=== PATIENT | female | born 1935 | race Hispanic/Latino ===

== ENCOUNTER 2016-07-17 15:48 | Emergency (ER) | payer MEDICARE ==
[2016-07-17] MEDS ORDERED: TYLENOL PO ONE (17:05)
--- NOTE | 2016-07-17 17:06 | Emergency Department Report ---
ED General Adult HPI - General Chief complaint: Chest Pain Stated complaint: KAYLI Time Seen by Provider: 07/17/16 16:56 Source: patient, family, EMS (verbal report received from EMS.), RN notes reviewed Mode of arrival: Stretcher Limitations: Physical Limitation - History of Present Illness Initial comments: This is a 80-year-old female. She is previously unknown to me. The patient was recently admitted to [facility] for a cardiac bypass on July 06; her cardiac surgeon was Dr. Gee. As per family, the patient was in the hospital from July 06 throughout July 15. The patient is brought to the hospital by EMS for respiratory distress. As per EMS documentation, patient is complaining of shortness of breath. The patient was given Lasix and Rocephin prior to EMSs arrival. EMS reports that the patient's oxygen saturation was 81% in the field. Patient found to be febrile. Upon arrival to the ER, patient continued to complain of shortness of breath, fever and weakness. She has a chronic pain over her sternotomy site, which is not new, worsening or different. As per EMS documentation, patient was febrile in the field to 100.2, found to be hypoxic, and given albuterol. Patient in the ER was transitioned to a Ventimask, laboratory studies were obtained, blood cultures were obtained, a chest x-ray demonstrated right lower lobe pneumonia, and the patient was transitioned to BiPAP therapy. This hospital facility does not have cardiac surgery ICU or cardiac surgery consultation available. Given her recent surgical intervention, and her obvious clinical decompensation, I believe it is prudent and in the patient's best interest to be transferred back to the hospital where she had her surgery performed. Therefore, the case was discussed with Dr. Garcia, the cardiac surgeon covering for the patient's private cardiac surgeon, who graciously accepted the patient as a transfer. -: Gradual Consistency: constant Improves with: rest Worsens with: movement Associated Symptoms: cough, fever/chills, loss of appetite, malaise, shortness of breath, weakness - Related Data Home Medications Medication Instructions Recorded Confirmed Last Taken Aspirin [Aspirin BABY CHEW TAB] 81 mg PO QDAY 07/17/16 07/17/16 Unknown AtorvaSTATin [Lipitor] 40 mg PO QHS 07/17/16 07/17/16 Unknown Digoxin [Lanoxin] 0.125 mg PO DAILY 07/17/16 07/17/16 Unknown Estradiol 2 mg PO DAILY 07/17/16 07/17/16 Unknown Furosemide [Lasix TAB] 40 mg PO QDAY 07/17/16 07/17/16 Unknown Levothyroxine [Synthroid] 25 mcg PO QAM 07/17/16 07/17/16 Unknown Linagliptin [Tradjenta] 5 mg PO QDAY 07/17/16 07/17/16 Unknown Metoprolol Tartrate 75 mg PO BID 07/17/16 07/17/16 Unknown Nitrofurantoin [place]/M-Cryst 100 mg PO Q12HR 07/17/16 07/17/16 Unknown [Macrobid CAP] Potassium Chloride [K-Dur] 20 meq PO QDAY 07/17/16 07/17/16 Unknown Warfarin [Coumadin] 2.5 mg PO QDAY 07/17/16 07/17/16 Unknown traMADol [Ultram] 50 mg PO Q8H PRN 07/17/16 07/17/16 Unknown Allergies Allergy/AdvReac Type Severity Reaction Status Date / Time azithromycin Allergy Unknown Verified 07/17/16 16:30 codeine Allergy Unknown Verified 07/17/16 16:30 adhesive tape AdvReac Unknown Verified 07/17/16 16:30 flu vaccine Allergy Swelling Uncoded 07/17/16 16:30 ED Review of Systems ROS: Stated complaint: KAYLI Other details as noted in HPI Constitutional: fever, malaise Eyes: denies: vision change ENT: denies: epistaxis Respiratory: shortness of breath Cardiovascular: dyspnea on exertion Gastrointestinal: denies: vomiting Genitourinary: as per HPI Musculoskeletal: as per HPI Skin: lesions Neurological: weakness Psychiatric: anxiety ED Past Medical Hx - Past Medical History Previous Medical History?: Yes Hx Congestive Heart Failure: Yes Hx COPD: Yes - Surgical History Past Surgical History?: Yes Hx Open Heart Surgery: Yes (10 days ago) - Social History Smoking Status: Never Smoker Substance Use Type: None - Medications Home Medications: Home Medications Medication Instructions Recorded Confirmed Last Taken Type Aspirin [Aspirin BABY CHEW TAB] 81 mg PO QDAY 07/17/16 07/17/16 Unknown History AtorvaSTATin [Lipitor] 40 mg PO QHS 07/17/16 07/17/16 Unknown History Digoxin [Lanoxin] 0.125 mg PO DAILY 07/17/16 07/17/16 Unknown History Estradiol 2 mg PO DAILY 07/17/16 07/17/16 Unknown History Furosemide [Lasix TAB] 40 mg PO QDAY 07/17/16 07/17/16 Unknown History Levothyroxine [Synthroid] 25 mcg PO QAM 07/17/16 07/17/16 Unknown History Linagliptin [Tradjenta] 5 mg PO QDAY 07/17/16 07/17/16 Unknown History Metoprolol Tartrate 75 mg PO BID 07/17/16 07/17/16 Unknown History Nitrofurantoin [place]/M-Cryst 100 mg PO Q12HR 07/17/16 07/17/16 Unknown History [Macrobid CAP] Potassium Chloride [K-Dur] 20 meq PO QDAY 07/17/16 07/17/16 Unknown History Warfarin [Coumadin] 2.5 mg PO QDAY 07/17/16 07/17/16 Unknown History traMADol [Ultram] 50 mg PO Q8H PRN 07/17/16 07/17/16 Unknown History ED Physical Exam - General Limitations: Physical Limitation General appearance: alert, in no apparent distress - Head Head exam: Present: atraumatic, normocephalic - Eye Eye exam: Present: normal appearance, EOMI. Absent: nystagmus - ENT ENT exam: Present: normal exam, normal orophraynx, mucous membranes moist, normal external ear exam - Neck Neck exam: Present: normal inspection, full ROM. Absent: tenderness, meningismus - Respiratory Respiratory exam: Present: respiratory distress, wheezes, rales, rhonchi, chest wall tenderness, other (median sternotomy scar has no obvious redness, pus, streaking or cellulitis. There is dried blood, and there appears to be minimal necrosis.) - Cardiovascular Cardiovascular Exam: Present: regular rate, normal rhythm, normal heart sounds. Absent: bradycardia, tachycardia, irregular rhythm, systolic murmur, diastolic murmur, rubs, gallop - GI/Abdominal GI/Abdominal exam: Present: soft, normal bowel sounds. Absent: distended, tenderness, guarding, rebound, rigid, pulsatile mass - Extremities Exam Extremities exam: Present: normal inspection, normal capillary refill, pedal edema, other (left lower extremity is status post saphenous vein harvest. There are appropriate postoperative ecchymosis. There is no redness, pus, streaking). Absent: calf tenderness - Back Exam Back exam: Present: normal inspection, full ROM. Absent: tenderness, CVA tenderness (R), CVA tenderness (L), muscle spasm, paraspinal tenderness, vertebral tenderness - Neurological Exam Neurological exam: Present: alert, oriented X3, other (Extraocular movements intact. Tongue midline. No facial droop. Facial sensation intact to light touch in the V1, V2, V3 distribution bilaterally. 5 and 5 strength in 4 extremities.. Sensation is intact to light touch in 4 extremities.). Absent: motor sensory deficit - Psychiatric Psychiatric exam: Present: normal affect, normal mood - Skin Skin exam: Present: warm, dry, intact, normal color. Absent: rash ED Course Vital Signs 07/17/16 07/17/16 07/17/16 16:14 16:15 16:31 Temperature 100.9 F H Pulse Rate 78 76 Respiratory 24 26 H Rate Blood Pressure 154/53 145/54 O2 Sat by Pulse 85 84 96 Oximetry 07/17/16 07/17/16 07/17/16 16:42 17:01 17:30 Temperature Pulse Rate 78 73 Respiratory 24 19 23 Rate Blood Pressure 154/53 145/54 O2 Sat by Pulse 95 96 96 Oximetry 07/17/16 07/17/16 07/17/16 17:31 18:00 18:31 Temperature Pulse Rate 74 72 68 Respiratory 18 22 24 Rate Blood Pressure 154/53 123/48 123/48 O2 Sat by Pulse 97 97 96 Oximetry 07/17/16 07/17/16 18:50 19:01 Temperature 98.6 F Pulse Rate 68 Respiratory 18 Rate Blood Pressure 123/48 O2 Sat by Pulse 97 Oximetry - Reevaluation(s) Reevaluation #1: 07/17/16 17:50 Differential diagnosis: Pneumonia, bacteremia, congestive heart failure, multifactorial respiratory failure Assessment and plan: 80-year-old female status post triple bypass with fever, leukocytosis, respiratory failure requiring initiation of BiPAP therapy. She will require transfer. This facility does not have the ability to definitively manage this patient. She'll be started on BiPAP therapy, and treated broadly with vancomycin, Zosyn and Levaquin. Patient and family were informed. Reevaluation #2: 07/17/16 17:52 Elevated troponin is appreciated. This is most likely a combination of cardiac strain, recent sternotomy, renal insufficiency, acute febrile illness. Elevated BNP is appreciated. Patient is given Lasix prior to my evaluation. ED Medical Decision Making - Lab Data Result diagrams: 07/17/16 17:01 07/17/16 17:01 Vital Signs 07/17/16 07/17/16 07/17/16 16:14 16:15 16:31 Temperature 100.9 F H Pulse Rate 78 76 Respiratory 24 26 H Rate Blood Pressure 154/53 145/54 O2 Sat by Pulse 85 84 96 Oximetry 07/17/16 07/17/16 07/17/16 16:42 17:01 17:30 Temperature Pulse Rate 78 73 Respiratory 24 19 23 Rate Blood Pressure 154/53 145/54 O2 Sat by Pulse 95 96 96 Oximetry Lab Results 07/17/16 07/17/16 07/17/16 Range/Units 17:01 17:01 17:01 WBC 26.7 H (4.5-11.0) K/mm3 RBC 3.57 L (3.65-5.03) M/mm3 Hgb 10.4 (10.1-14.3) gm/dl Hct 31.7 (30.3-42.9) % MCV 89 (79-97) fl MCH 29 (28-32) pg MCHC 33 (30-34) % RDW 14.2 (13.2-15.2) % Plt Count 390 (140-440) K/mm3 Seg Neutrophils % Enamel Shader PT 19.4 H (12.2-14.9) Sec. INR 1.64 H (0.87-1.13) APTT 31.0 (24.2-36.6) Sec. Sodium 136 L (137-145) mmol/L Potassium 4.1 (3.6-5.0) mmol/L Chloride 88.9 L (98-107) mmol/L Carbon Dioxide 30 (22-30) mmol/L Anion Gap 21 mmol/L BUN 29 H (7-17) mg/dL Creatinine 1.6 H (0.7-1.2) mg/dL Estimated GFR 31 ml/min BUN/Creatinine Ratio 18.12 % Glucose 168 H (65-100) mg/dL Calcium 9.3 (8.4-10.2) mg/dL Magnesium (1.7-2.3) mg/dL Troponin T 0.048 H (0.00-0.029) ng/mL NT-Pro-B Natriuret Pep (0-900) pg/mL 07/17/16 07/17/16 Range/Units 17:01 17:01 WBC (4.5-11.0) K/mm3 RBC (3.65-5.03) M/mm3 Hgb (10.1-14.3) gm/dl Hct (30.3-42.9) % MCV (79-97) fl MCH (28-32) pg MCHC (30-34) % RDW (13.2-15.2) % Plt Count (140-440) K/mm3 Seg Neutrophils % PT (12.2-14.9) Sec. INR (0.87-1.13) APTT (24.2-36.6) Sec. Sodium (137-145) mmol/L Potassium (3.6-5.0) mmol/L Chloride (98-107) mmol/L Carbon Dioxide (22-30) mmol/L Anion Gap mmol/L BUN (7-17) mg/dL Creatinine (0.7-1.2) mg/dL Estimated GFR ml/min BUN/Creatinine Ratio % Glucose (65-100) mg/dL Calcium (8.4-10.2) mg/dL Magnesium 1.8 (1.7-2.3) mg/dL Troponin T (0.00-0.029) ng/mL NT-Pro-B Natriuret Pep 7342 H (0-900) pg/mL - Radiology Data Radiology results: image reviewed interpreted by me: EKG demonstrates median sternotomy, right lower lobe infiltrate, pulmonary vascular congestion, possible left lower lobe infiltrate Critical Care Time: Yes Critical care time in (mins) excluding proc time.: 45 Critical care attestation.: If time is entered above; I have spent that time in minutes in the direct care of this critically ill patient, excluding procedure time. Critical Care Time: Critical care time includes multiple bedside evaluations, interpretation of laboratory studies, radiology studies, time spent managing a patient with acute febrile illness, sepsis syndrome requiring initiation of BiPAP therapy, broad- spectrum antibiotics, and consultation with cardiac surgery. ED Disposition Clinical Impression: Acute febrile illness, Respiratory distress Disposition: DC/TX SHORT-TERM GEN HOSP INPT Is pt being admited?: No Does the pt Need Aspirin: No Condition: Fair Referrals: KARI REYES MD [Primary Care Provider] - 3-5 Days
[2016-07-17] MEDS ORDERED: LEVAQUIN 750MG/150ML 750 MG/150 ML BAG IV ONE (17:16)
[2016-07-17] MEDS ORDERED: ZOSYN/NS 4.5GM/100ML 4.5 GM/100 ML VIAL IV ONE (17:16)
[2016-07-17] MEDS ORDERED: VANCOMYCIN VIAL IV ONE (17:16)
[2016-07-17 17:17] LABS: Hematocrit 31.7 % (30.3-42.9); Hemoglobin 10.4 gm/dl (10.1-14.3); Mean Corpuscular HGB Conc 33 % (30-34); Mean Corpuscular Hemoglobin 29 pg (28-32); Mean Corpuscular Volume 89 fl (79-97); Platelet Count 390 K/mm3 (140-440); Red Blood Count 3.57 M/mm3 (3.65-5.03); Red Cell Distribution Width 14.2 % (13.2-15.2)
[2016-07-17 17:26] LABS: White Blood Count 26.7 K/mm3 (4.5-11.0)
[2016-07-17 17:27] LABS: INR 1.64 (0.87-1.13)
[2016-07-17 17:40] LABS: BUN/Creatinine Ratio 18.12; Calcium 9.3 mg/dL (8.4-10.2); Chloride 88.9 mmol/L (98-107); Potassium 4.1 mmol/L (3.6-5.0)
--- NOTE | 2016-07-17 17:57 | XRay Report ---
FINAL REPORT EXAM: XR CHEST 1V AP HISTORY: Shortness of breath TECHNIQUE: One view examination of the chest PRIORS: None FINDINGS: Sternotomy cerclage wires are present. An electronic cardiac device obscures a portion of the left chest, limiting the examination. Cable entry is via the left subclavian vein. The visualized left lung is clear. No pneumothorax or pleural effusion. Normal cardiac silhouette size without definite vascular congestion. No acute skeletal pathology. Degenerative changes in the regional skeleton. Nonspecific hazy confluent opacity is noted in the right lung base which may be layering pleural fluid, atelectasis, or pneumonia. IMPRESSION: Nonspecific hazy confluent opacity in the right lung base may be layering pleural fluid, atelectasis, or pneumonia
[2016-07-17] MEDS ORDERED: VANCOMYCIN PHARMACY TO DOSE IV SCH (18:00)
[2016-07-17 18:09] LABS: Basophils % (Manual) 0 % (0.0-1.8); Blastocytes % (Manual) 0 %; Eosinophils % (Manual) 4.5 % (0.0-4.3); Nucleated Red Blood Cells 0.5 % (0.0-0.9)
[2016-07-17 18:10] LABS: Large Platelets 1+
[2016-07-17 18:11] LABS: Anisocytosis 1+; Diff Status Complete; Platelet Estimate Consistent w Auto
[2016-07-17] MEDS ORDERED: VANCOMYCIN 1,250 MG in NACL 0.9% 250ML 250 ML IV ONE (18:30)
[2016-07-17 20:01] VITALS: BP 137/49
== END 2016-07-17 20:45 | disposition short-term general hospital (02) ==
LOC: ED 15:48
DX: R06.00 Dyspnea, unspecified (principal); R50.9 Fever, unspecified; I50.9 Heart failure, unspecified; J44.9 Chronic obstructive pulmonary disease, unspecified; Z79.82 Long term (current) use of aspirin
CPT/HCPCS: 36415; 71010; 80048; 80061; 82140; 83735; 83880; 84484; 85007; 85025; 85610; 85730; 87040; 93005; 93010; 96365; 96366; 96367; 99291; J1956; J2543; J3370; J7050